=== PATIENT | female | born 1965 | race Caucasian/White ===

== ENCOUNTER 2020-03-21 07:41 | Emergency (ER) | payer MEDICAID ==
[~2020-03-21] VITALS: Ht 177.8 cm; Wt 122.5 kg
[~2020-03-21 07:41] MED LIST: AMLO2.5T4 PO; AZIT250T13 PO; CARB200T PO; IBUP-1953 PO; LISI-607 PO; MAGN400T26 GT
[2020-03-21 07:51] VITALS: BP 126/103
== END 2020-03-21 09:15 | disposition home or self-care (01) ==
LOC: ER 07:43
DX: S52.571A Other intraarticular fracture of lower end of right radius, initial encounter for closed fracture (principal); I10 Essential (primary) hypertension; Z79.899 Other long term (current) drug therapy; W18.09XA Striking against other object with subsequent fall, initial encounter; Y93.01 Activity, walking, marching and hiking; Y92.89 Other specified places as the place of occurrence of the external cause; Y99.8 Other external cause status
CPT/HCPCS: 73090-TC; 73110

== ENCOUNTER 2025-01-24 05:39 | Emergency (ER) | payer MEDICAID ==
[~2025-01-24] VITALS: Ht 180.3 cm; Wt 97.5 kg
[~2025-01-24 05:39] MED LIST changes: -LISI-607 PO; +LISI-768 PO
[2025-01-24] MEDS ORDERED: IBUP-1955 PO (07:10)
[2025-01-24] MEDS ORDERED: ERYT3.5O9 EACHEYE (07:10)
[2025-01-24] MEDS ORDERED: AMOX500C2 PO (07:10)
[2025-01-24 07:23] VITALS: BP 145/76; TEMP 98.8; O2SAT 98
== END 2025-01-24 07:24 | disposition home or self-care (01) ==
LOC: ER 05:43
DX: J06.9 Acute upper respiratory infection, unspecified (principal); R05.9 Cough, unspecified; J02.9 Acute pharyngitis, unspecified; H10.33 Unspecified acute conjunctivitis, bilateral; I10 Essential (primary) hypertension; Z79.899 Other long term (current) drug therapy